=== PATIENT | male | born 1995 | race Caucasian/White ===

== ENCOUNTER 2023-12-03 10:01 | Outpatient (CLI) | payer BC, SELFPAY | END 2023-12-03 10:02 | disposition home or self-care (01) | PROVIDERS: Visit Provider Family Medicine | DX: R10.32 Left lower quadrant pain (principal) | CPT/HCPCS: 87086 ==

== ENCOUNTER 2024-05-04 13:10 | Emergency (ER) | payer BC, SELFPAY ==
[2024-05-04 13:24] VITALS: BP 119/74; PULSE 53; RESP 18; TEMP 36.3; O2SAT 98; BMI 35.6
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
--- NOTE | 2024-05-04 18:37 | ED.NURSE ---
Tdap given to pt via verbal order from Dr. [place]. Order not put in to [facility], pharmacy was sent an e-mail of this. E-mail included medication, lot number, expiration date, IM injection site, pt name and , and date pt was seen here.
== END 2024-05-04 16:17 | disposition home or self-care (01) ==
PROVIDERS: Emergency Provider Emergency Medicine
DX: S01.21XA Laceration without foreign body of nose, initial encounter (principal); S02.2XXA Fracture of nasal bones, initial encounter for closed fracture; W22.8XXA Striking against or struck by other objects, initial encounter
CPT/HCPCS: 13151; 70450; 70486; 99283

== ENCOUNTER 2024-05-16 06:09 | Day surgery (SDC) | payer BC, SELFPAY ==
[2024-05-16] VITALS (14 sets, daily range): BP systolic 117–154; BP diastolic 77–96; PULSE 42–60; RESP 14–16; TEMP 36.1–36.6; O2SAT 94–100; BMI 34.9
[2024-05-16] MEDS: LACTATED RINGERS 1000 ML 1,000 ML 100 ML IV (06:30)
[2024-05-16] MEDS: SODIUM CHLORIDE 0.9 % (FLUSH) 10 ML SYRINGE IVF (06:30)
--- NOTE | 2024-05-16 06:53 | SUR.OPER ---
PATIENT QUESTIONS ANSWERED SATISFACTORILY PREOPERATIVELY. PATIENT BROUGHT TO OR RM #1 ON A CART. Patient positioned supine on OR #1 bed. Perioperative team wrapped arms bilaterally at patient side with drawsheet. ? Final approval of positioning by surgeon.
[2024-05-16] MEDS: MUPIROCIN 1 GM PACKET 1 APPLIC TOPICAL (07:46)
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
--- NOTE | 2024-05-16 08:05 | W.ANESCHARGE ---
Anesthesia Charges Start Date/Time Anesthesia Start Date: 05/16/24 Anesthesia Start Time: 07:30 Stop Date/Time Anesthesia Stop Date: 05/16/24 Anesthesia Stop Time: 08:06
[2024-05-16] MEDS: fentaNYL 100 MCG/2 ML inj 50 MCG IVP (08:26)
--- NOTE | 2024-05-16 09:10 | W.ANESCHARGE ---
Anesthesia Charges Start Date/Time Anesthesia Start Date: 05/16/24 Anesthesia Start Time: 07:30 Stop Date/Time Anesthesia Stop Date: 05/16/24 Anesthesia Stop Time: 08:06
--- NOTE | 2024-05-16 11:14 | W.PM.ENTPROC ---
Procedure Note Date of procedure: 05/16/24 Procedure: Preop diagnosis depressed left nasal fracture Postoperative diagnosis same Procedure closed reduction nasal fracture Under general endotracheal anesthesia patient was prepped draped usual fashion. The fracture was marked externally with the fracture elevator then was placed intranasally in the nasal bone fracture reduced. A good reduction was achieved but the bone was fairly unstable. Therefore a Merocel pack coated in Bactroban was placed beneath the fracture line to hold the bone into position from inside. External dressing consisting of Steri tape and benzoin was applied. The patient procedure was taken recovery satisfactory condition. Blood loss was 20 mL. Surgeon: Mihai Miller MD
== END 2024-05-16 10:19 | disposition home or self-care (01) ==
PROVIDERS: PCP Nurse Practitioner Family; Visit Provider Otolaryngology
PROC: 0NSBXZZ Reposition Nasal Bone, External Approach (ICD-10-PCS; CPT 21320; principal; 2024-05-16 07:30)
DX: S02.2XXA Fracture of nasal bones, initial encounter for closed fracture (principal)
CPT/HCPCS: 21320; 00160; J0330; J2175; J2250; J2704; J3010; J3490; J7120